=== PATIENT | male | born 1960 | race Caucasian/White ===

== ENCOUNTER → 2018-12-13 | Day surgery (SDC) | payer BC ==
[~2018-12-13] MED LIST: AMLO10TA8 PO; LIDOCAINE 1%/EPI 1:100,000 20 ML VIAL. INJ ONE; MULT1TAB52 PO; OMEP20TA8 PO; VENTOLIN HFA18 GM INH
[2018-12-13 07:33] VITALS: BP 145/89
--- NOTE | 2018-12-13 10:05 | PDOC4 ---
Operative Note Operative Note Date: 12/13/2018 Preoperative diagnosis: Posterior neck mass Postoperative diagnosis: Same Procedure: Excision of posterior neck mass Surgeon: David Specimen: Posterior neck mass Dictation: Patient is a 58-year-old male is complaining of enlarging mass in his posterior neck occasionally is painful when he leans against something procedure of excision was explained to the patient in detail all risks benefits were also discussed including bleeding infection alternatives to this procedure also discussed with patient who seemed to understand and gave both verbal and written consent to have the procedure performed. Patient was taken to the minors room sitting in a chair his posterior neck was prepped and draped usual sterile fashion using ChloraPrep and area over the mass was injected with 1% lidocaine with epinephrine incision was made over the mass this is carried down through the subcutaneous tissue using electrocautery mass was sharply excised appeared to be a lipoma and sent for pathology. Wound was closed in 2 layers a deep layer running 3-0 Vicryl the skin was approximated for septic or Monocryl and Dermabond glue was used to fully close the wound. Patient tolerated procedure well was discharged home in stable condition all sponge instrument needle counts listed as correct estimated blood loss 5 mL MANDY ROSARIO MD Dec 13, 2018 10:05
--- NOTE | 2018-12-16 15:06 | PATHOLOGY ---
[facility] Accession Number: [id number] . 01 Material submitted: . POSTERIOR NECK MASS . 02 Diagnosis: Segments of fibroadipose tissue, posterior neck mass: - Lipoma. LBQ/12/16/2018 . 02 Comment: There is no evidence of malignancy. (JPM/db; 12/16/2018) . 02 Electronically signed: . Shashank Fried MD, Pathologist NPI- [id number] . 01 Gross description: . The specimen is received in formalin, labeled "Theo Siddiqui, posterior neck mass", are several lobulated segments of adipose tissue measuring 3.5 x 2.2 x 1.2 cm in aggregate. The largest fragment is partially covered by a thin chaudhary-white membrane and upon serial sectioning reveals a yellow homogeneous cut surface with no discrete hemorrhage or necrosis. Fac[employer] tissue is submitted in A1. [facility] . 02 Pathologist provided ICD-10: D17.79 . 02 CPT . 439836 Specimen Comment: A courtesy copy of this report has been sent to Specimen Comment: [phone], . Specimen Comment: Report sent to and Performed at: 01 [facility] [address], [place], [place] [id number] MD Je James MD Phone: [phone] Performed at: 02 [facility] [address] [place], [place] [id number] MD Shashank Fried MD Phone: [phone]
== END | disposition home or self-care (01) ==
LOC: SURG 06:48
PROVIDERS: ATTEND Surgery
DX: D17.0 Benign lipomatous neoplasm of skin and subcutaneous tissue of head, face and neck (principal); K21.9 Gastro-esophageal reflux disease without esophagitis; J45.909 Unspecified asthma, uncomplicated; Z88.1 Allergy status to other antibiotic agents; Z79.899 Other long term (current) drug therapy; K58.9 Irritable bowel syndrome, unspecified; Z98.890 Other specified postprocedural states; Z80.0 Family history of malignant neoplasm of digestive organs; Z87.891 Personal history of nicotine dependence; Z72.89 Other problems related to lifestyle; Z88.8 Allergy status to other drugs, medicaments and biological substances
CPT/HCPCS: 21552; 88307; J3490